=== PATIENT | female | born 1950 | race Caucasian/White ===

== ENCOUNTER 2016-03-20 07:05 | Day surgery (SDC) | payer BC ==
[2016-03-03 10:04] VITALS: BMI 21.7
[~2016-03-20 07:05] MED LIST: CEFAZOLIN 1 GM/D5W 50 ML IVPB ONE; CELECOXIB 200 MG CAPSULE PO ONE; GABAPENTIN 300 MG CAPSULE (FP) PO ONE; TRANEXAMIC ACID 1000 MG/10 ML VIAL IVPUSH ONE; oxyCODONE HCL 10 MG SUSTAINED ACTING TABLET PO ONE
[2016-03-20] MEDS ORDERED: oxyCODONE HCL 10 MG SUSTAINED ACTING TABLET ONE (07:26)
[2016-03-20] MEDS ORDERED: CELECOXIB 200 MG CAPSULE ONE (07:26)
[2016-03-20] MEDS ORDERED: GABAPENTIN 300 MG CAPSULE (FP) ONE (07:26)
[2016-03-20] MEDS ORDERED: MIDAZOLAM HCL 2 MG/2 ML SINGLE DOSE VIAL ONE (08:26)
[2016-03-20] MEDS ORDERED: DEXAMETHASONE SOD PHOSPHATE/PF 10 MG/ML SDV ONE (08:26)
[2016-03-20] MEDS ORDERED: BUPIVACAINE HCL/PF 0.5% (5MG/ML) 10 ML VIAL ONE ×2 (08:27→08:50)
[2016-03-20] MEDS ORDERED: ceFAZolin SODIUM 1 GM VIAL ONE ×2 (08:49→09:14)
[2016-03-20] MEDS ORDERED: ROPIVICAINE 0.2%/MORPH PF/KETOROLAC - 51ML DISP.SYRINGE IA ONE ×2 (08:49→10:46)
[2016-03-20] MEDS ORDERED: SUCCINYLCHOLINE CHLORIDE 200 MG/10 ML VIAL ONE (08:51)
[2016-03-20] MEDS ORDERED: PROPOFOL 20 ML ONE ×4 (09:14→12:33)
[2016-03-20] MEDS ORDERED: ePHEDrine SULFATE 50 MG/1 ML AMPULE ONE (09:31)
[2016-03-20] MEDS ORDERED: KETOROLAC TROMETHAMINE 30 MG/1 ML VIAL ONE (10:08)
[2016-03-20] MEDS ORDERED: DEXAMETHASONE SOD PHOSPHATE 4 MG/1 ML VIAL ONE (10:08)
[2016-03-20] MEDS ORDERED: ONDANSETRON 4 MG/2 ML VIAL ONE (10:08)
[2016-03-20] MEDS ORDERED: TRANEXAMIC ACID 1000 MG/10 ML VIAL ONE (11:03)
[2016-03-20] MEDS ORDERED: ONDANSETRON 4 MG/2 ML VIAL IVPB PRN (11:13)
[2016-03-20] MEDS ORDERED: MAG HYDROX/AL HYDROX/SIMETH 30 ML UNIT-DOSE CUP PO PRN (11:13)
[2016-03-20] MEDS ORDERED: LACTATED RINGERS SOLUTION 1,000 ML IV SCH ×2 (11:15)
[2016-03-20] MEDS ORDERED: ONDANSETRON 4 MG/2 ML VIAL IVPUSH PRN (11:15)
[2016-03-20] MEDS ORDERED: oxyCODONE HCL 5 MG TABLET PO PRN ×2 (11:15)
[2016-03-20] MEDS ORDERED: PROMETHAZINE HCL 25 MG/1 ML VIAL IVPUSH PRN (11:15)
[2016-03-20] MEDS: ACETAMINOPHEN 1000 MG/100 ML VIAL (NON FORMULARY) IVPB ONE ×2 (11:26→12:48)
--- NOTE | 2016-03-20 11:26 | OP ---
Operative Note - Note: Operative Date: 03/20/16 Pre-Operative Diagnosis: Right knee patellofemoral joint arthritis Operation: Replacement of trochlear portion of femoral condyles with prosthesis , replacement of patella with prosthesis Implants: trochlea and patella implants Surgeon: Ajit Qureshi Director Patient Accounting: Portia Alvarez Anesthesiologist/METALLURGICAL ANALYST: Rachell Lance Anesthesia: General, Spinal Estimated Blood Loss (mls): 0
[2016-03-20] MEDS ORDERED: CALCIUM 500MG/VIT-D 200 UNITS COMBO TABLET (FP) PO SCH (11:30)
--- NOTE | 2016-03-20 14:42 | OP ---
DATE OF OPERATION: 03/20/2016 PREOPERATIVE DIAGNOSIS: Right knee patellofemoral arthritis. POSTOPERATIVE DIAGNOSIS: Right knee patellofemoral arthritis. OPERATION PERFORMED: 1. Replacement of right knee trochlear portion of femoral condyles. 2. Replacement of right patella with prosthesis. COMPONENTS USED: [place] [employer] Restoris size 2 right femoral trochlea and 29-mm asymmetric patella. DRAINS PLACED: None. ESTIMATED BLOOD LOSS: Less than 50 mL. TOTAL TOURNIQUET TIME: 90 minutes. FINDINGS: Complete loss of cartilage over the entire patella with exposed denuded bone and lateral trochlear portion of the femoral condyles complete loss of cartilage encompassing over 50% of the trochlea. INDICATIONS FOR THE PROCEDURE: This patient failed greater than 1 year of nonoperative treatment for right knee patellofemoral arthritis including nonsteroid, antiinflammatories, physical therapy, activity modifications, intraarticular injections, and other wgyf-bra-vkrktro medications, and was indicated for right knee patellofemoral replacement. Preoperatively in the waiting area as well as in the office I had a long discussion with the patient regarding the plan, the expected outcome, and the risks, benefits, and alternatives of surgery. The risks include, but are not limited to infection, which may require future surgery and removal of implants, bleeding which may require transfusion, damage to nerves, arteries, veins, tendons, muscles, and other adjacent structures leading to possible numbness, weakness, decreased function, and the possible need for surgical repair. Also discussed with her the possibility of implant loosening, stiffness, patellofemoral maltracking, and need for revision surgery for a variety of reasons. We also discussed blood clots and other possible medical complications. In addition, we discussed the possibility of needing future surgery for conversion of this to a total knee replacement. This was discussed at length and consent was obtained. PROCEDURE IN DETAIL: The patient was taken to the operating room and placed on the operating table in supine position following induction of spinal anesthesia. A well-padded tourniquet was placed on the right thigh and the right lower extremity was prepped and draped in a sterile fashion and a time-out was performed to confirm the correct side, verify that the site was marked, and confirmed the correct patient and procedure to be performed, as well as that the patient received the appropriate preoperative antibiotics, tranexamic acid, and a had a compression device on the nonoperative leg and was appropriately in the [employer] computer and robot. The tourniquet was elevated and the midline incision was performed followed by a medial parapatellar arthrotomy. Next we placed 2 pins into the femur 4 fingerbreadths proximal to the incision through 5-mm incisions that were bluntly dissected down to bone. The tracker was then attached. We placed a checkpoint on the femur. We then registered the patient in the computer through obtaining the hip center and obtaining various checkpoints. We also did cartilage mapping to assure that our implant would be flush with the cartilage. We then planned for and used a bur on our trochlear portion of our femoral condyles and did this in accordance with our preoperative and intraoperative plans while protecting the surrounding soft tissues. We then placed a trial implant in the trochlear portion of the femoral condyles. We then addressed the patella, which measured 20-mm. We then used the guide and cut down to 13- mm and then reconstructed this with a 29-mm patella. We then performed a lateral double-cut. We removed any osteophytes around the trochlear portion of the femoral condyles and with the trials in place we had good stability, range of motion, and the patella tracked centrally. We were able to flex to 140 degrees and fully extend. We then removed the trial components. We copiously irrigated the knee and we performed sequential supplementation first with the trochlear portion of the femoral condyle and then the patella. All excess cement was removed and we waited for the cement to harden. Once all of the cement was harden with the trials in place, the patella tracked centrally and there was flexion to 140 degrees with the patellar and femoral components in place. The knee was copiously irrigated once again and we injected a local anesthetic cocktail. We closed the arthrotomy with number 1 Vicryl and the skin with 2-0 Vicryl and ivelisse. Prior to cementing, we had removed all our trackers and checkpoints and pins. A dry sterile compressive dressing was placed and the patient was returned to the recovery room in stable condition. WOUND CLASSIFICATION: Clean. COMPLICATIONS: None. SPECIMENS: bone. Suellen [id number] MTDD
[2016-03-20] MEDS: ACETAMINOPHEN 325 MG TABLET (FP) PO SCH (17:56)
[2016-03-20] MEDS: CEFAZOLIN 1 GM/D5W 50 ML IVPB SCH (17:56)
[2016-03-20] MEDS: ASPIRIN 325 MG TABLET PO SCH (21:45)
[2016-03-20] MEDS: CELECOXIB 200 MG CAPSULE PO SCH (21:46)
[2016-03-20] MEDS: GABAPENTIN 300 MG CAPSULE (FP) PO SCH (21:46)
[2016-03-20] MEDS: oxyCODONE HCL 10 MG SUSTAINED ACTING TABLET PO SCH (21:47)
[2016-03-20] MEDS: SENNOSIDES/DOCUSATE COMBO (SENNA PLUS) TABLET (UD) PO SCH (21:48)
[2016-03-20] MEDS ORDERED: GABAPENTIN 300 MG CAPSULE (FP) PO SCH (22:00)
[2016-03-21] MEDS: ACETAMINOPHEN 325 MG TABLET (FP) PO SCH ×2 (00:19→05:34)
[2016-03-21] MEDS: CEFAZOLIN 1 GM/D5W 50 ML IVPB SCH (01:02)
[2016-03-21 09:52] VITALS: BP 100/50; PULSE 87; TEMP 97.3
[2016-03-21] MEDS: SENNOSIDES/DOCUSATE COMBO (SENNA PLUS) TABLET (UD) PO SCH (09:58)
[2016-03-21] MEDS: ASPIRIN 325 MG TABLET PO SCH (09:58)
[2016-03-21] MEDS: GABAPENTIN 300 MG CAPSULE (FP) PO SCH (09:59)
[2016-03-21] MEDS ORDERED: RALOXIFENE HCL PO SCH (10:00)
[2016-03-21] MEDS: CELECOXIB 200 MG CAPSULE PO SCH (10:00)
[2016-03-21] MEDS ORDERED: PANTOPRAZOLE 40 MG TABLET (FP) PO SCH (10:00)
[2016-03-21] MEDS ORDERED: MULTIVITAMINS (DAILY MVI) TABLET (FP) PO SCH (10:00)
[2016-03-21] MEDS ORDERED: CHOLECALCIFEROL (VITAMIN D3) 1,000 UNIT TABLET (FP) PO SCH (10:00)
--- NOTE | 2016-03-21 10:15 | PN ---
Progress Note (short form) - Note Progress Note: 66F POD1 s/p R knee makoplasty under spinal anesthetic with adductor canal and selective tibial blocks doing well. Pt states that pain is well controlled, AVSS , reports no anesthetic complications. Sensory and motor function is intact in both lower extremities.
[2016-03-21] MEDS: oxyCODONE HCL 10 MG SUSTAINED ACTING TABLET PO SCH (10:23)
--- NOTE | 2016-03-21 10:27 | HOSP ---
Subjective - Review of Symptoms Subjective: patient concerned in regards to nausea after discharge home. She reports feeling well, minimal pain to the right knee, denies any paresthesia, chest pain or shortness of breath. Physical Examination Vital Signs: Vital Signs Temperature 97.3 F L 03/21/16 09:51 Pulse Rate 87 03/21/16 09:51 Respiratory Rate 18 03/21/16 09:51 Blood Pressure 100/50 03/21/16 09:51 O2 Sat by Pulse Oximetry (%) 100 03/21/16 09:00 Constitutional: Yes: Well Nourished, No Distress, Calm Hospitalist Encounter Outcome: discharge home with prescription for zofran. Primary Physician Notified: Ajit Qureshi Time PMD Notified: 10:15
--- NOTE | 2016-03-24 11:42 | PATH ---
Surgical Pathology Report Patient Name: EMERY LEWIS [facility]. Rec. #: [id number] /Age/Gender: 1950 (Age: 66) / F Account: [id number] Location: [facility] AMBULATORY Taken: 03/20/2016 Received: 03/20/2016 Reported: 03/24/2016 Physicians: Ajit Qureshi M.D. Specimen(s) Received RIGHT PATELLA BONE AND TISSUE Clinical History Chondromalacia patella, arthritis right knee Final Diagnosis BONE AND SOFT TISSUE, RIGHT KNEE, PARTIAL REPLACEMENT: DEGENERATIVE JOINT DISEASE. Electronically Signed Xu Gordon M.D. Gross Description Received in formalin, labeled "right patella bone and tissue," is a 3.7 x 3.0 x 0.6 cm go, irregular portion of bone with minimal attached soft tissue. The articular surface displays a 1 cm in greatest dimension area of eburnation present. The remaining articular surface is go-yellow and diffusely granular. The underlying trabecular bone is yellow and hard. Plug Saw Operator sections are submitted in one cassette, following decalcification. 03/21/201603/21/2016
== END 2016-03-21 11:22 | disposition home health service (06) ==
LOC: FASU 07:05 → FM/S 12:29 → FASU 03-21 11:22
PROVIDERS: ATTEND Orthopaedic Surgery
PROC: 8E0YXBZ Computer Assisted Procedure of Lower Extremity (ICD-10-PCS; 2016-03-20)
PROC: 0QRD0JZ Replacement of Right Patella with Synthetic Substitute, Open Approach (ICD-10-PCS; 2016-03-20)
PROC: 8E0YXBZ Computer Assisted Procedure of Lower Extremity (ICD-10-PCS; 2016-03-20)
PROC: 8E0Y0CZ Robotic Assisted Procedure of Lower Extremity, Open Approach (ICD-10-PCS; 2016-03-20)
PROC: 0SRT0J9 Replacement of Right Knee Joint, Femoral Surface with Synthetic Substitute, Cemented, Open Approach (ICD-10-PCS; principal; 2016-03-20 09:36)
DX: M17.11 Unilateral primary osteoarthritis, right knee (principal); M22.41 Chondromalacia patellae, right knee
CPT/HCPCS: 20985; 27438; 27442; S2900; 73560-TC-RT; 88304-TC; 88311-TC; 94010; 94760; 97116-GP; 97162-PG

== ENCOUNTER 2017-03-20 10:59 | Day surgery (SDC) | payer BC ==
--- NOTE | 2017-03-17 11:01 | HP ---
Admitting History and Physical - Primary Care Physician PCP: Hillary Gonzalez - Admission Chief Complaint: right radial sclerosing lesion History of Present Illness: 67 yo female noted to have right 6 o'clock mass on mammo and US. Patient underwent a right US guided core bx 12/05/2016 which was c/w radial sclerosing lesion. Patient is now presenting for right breast WE with NL. History Source: Patient Limitations to Obtaining History: No Limitations - Past Surgical History Additional Past Surgical History: right knee surgery 2017 - Smoking History Smoking history: Never smoked Have you smoked in the past 12 months: No - Alcohol/Substance Use Hx Alcohol Use: Yes (social) Home Medications - Allergies Allergies/Adverse Reactions: Allergies Allergy/AdvReac Type Severity Reaction Status Date / Time No Known Allergies Allergy Verified 03/03/16 09:44 - Home Medications Home Medications: Ambulatory Orders Calcium Carbonate/Vitamin D3 [Calcium 500-Vit D3 200 Caplet] 1 tab PO PRN Cholecalciferol (Vitamin D3) [Vitamin D3] 5,000 unit PO DAILY 03/03/16 Raloxifene HCl [Evista (Nf) -] 1 tab PO DAILY 03/03/16 Ondansetron [Zofran Odt -] 4 mg SL TID PRN #21 od.tablet 03/21/16 Family Disease History - Family Disease History Family Disease History: CA: Mother (breast at 61) Other Family History: maternal uncle x 2 (colon cancer 80s) Review of Systems - Review of Systems Constitutional: reports: No Symptoms Cardiovascular: reports: No Symptoms Respiratory: reports: No Symptoms Physical Examination Cardiovascular: Yes: WNL Respiratory: Yes: WNL Breast(s): Yes: Other (Symmetrical without skin changes or nipple discharge. Breasts are diffusely nodular and dense without suspicious masses or adenopathy) Problem List - Problems (1) Benign neoplasm of right breast Code(s): D24.1 - BENIGN NEOPLASM OF RIGHT BREAST Assessment/Plan Plan: right breast wide excision with NL
[2017-03-19 09:10] VITALS: BMI 22.2
[2017-03-20] MEDS ORDERED: MIDAZOLAM HCL 2 MG/2 ML SINGLE DOSE VIAL ONE (14:19)
[2017-03-20] MEDS ORDERED: PROPOFOL 20 ML ONE (14:19)
[2017-03-20] MEDS ORDERED: DEXAMETHASONE SOD PHOSPHATE 4 MG/1 ML VIAL ONE (14:19)
[2017-03-20] MEDS ORDERED: LIDOCAINE HCL 2% 100 MG/5 ML DISP.SYRIN ONE (14:19)
[2017-03-20] MEDS ORDERED: LIDOCAINE HCL 1%, 10 MG/ML (20ML VIAL) ONE (14:42)
[2017-03-20] MEDS ORDERED: ONDANSETRON 4 MG/2 ML VIAL IVPUSH PRN (14:46)
[2017-03-20] MEDS ORDERED: DEXTROSE 5%-0.45% SALINE 1,000 ML IV SCH (15:00)
[2017-03-20] MEDS ORDERED: KETOROLAC TROMETHAMINE 30 MG/1 ML VIAL IVPUSH ONE (15:00)
[2017-03-20] MEDS ORDERED: BUPIVACAINE HCL/PF 0.25% (2.5MG/ML) 10 ML VIAL ONE (15:08)
[2017-03-20] MEDS ORDERED: ELECTROLYTE-148 SOLN 1,000 ML IV SCH (15:15)
[2017-03-20] MEDS ORDERED: ePHEDrine SULFATE 50 MG/1 ML AMPULE ONE (15:28)
[2017-03-20] MEDS ORDERED: ACETAMINOPHEN 325 MG TABLET (FP) PO ONE (15:30)
[2017-03-20] MEDS ORDERED: KETOROLAC TROMETHAMINE 30 MG/1 ML VIAL ONE (16:15)
[2017-03-20 16:48] VITALS: TEMP 97.9
[2017-03-20 17:57] VITALS: BP 127/67; PULSE 85
--- NOTE | 2017-03-23 11:28 | OP ---
DATE OF OPERATION: 03/20/2017 PREOPERATIVE DIAGNOSIS: Right breast radial scar. POSTOPERATIVE DIAGNOSIS: Right breast radial scar. PROCEDURE: Right mammographic localized breast wide excision. ANESTHESIA: IV sedation with local. ATTENDING SURGEON: Damion Gonzalez MD WELD FITTER: NOE Glynn ESTIMATED BLOOD LOSS: Minimal. COMPLICATIONS: None. DESCRIPTION OF PROCEDURE: The patient was made aware of the risks and benefits of the surgery and was consented. The patient was brought to the Radiology suite where a needle and wire were placed next to the index lesion. She was then placed in the supine position on the operating room table, and after IV sedation was administered, the operative site a prepped and draped in the usual sterile fashion. The local was locally infiltrated with a 1:1 ratio of 1% lidocaine with 0.25% bupivacaine for local anesthesia. The curvilinear periareolar incision was made the 6 o'clock position. Using electrocautery, thick skin flaps were made and then the needle was withdrawn to the puncture site and the wire . Tissues around the wire were then sharply excised and submitted with a short suture superior, long suture lateral. Specimen radiograph confirmed the presence of the index lesion. The wound was copiously irrigated with normal saline. Hemostasis was maintained by electrocautery. The deep tissues were closed with 2-0 Vicryl followed by deep subcuticular 3-0 Vicryl followed by a running subcuticular 4-0 Monocryl. Steri-Strips, a sterile bandage as well as compression bra were then applied, and the patient having tolerated the procedure well, was sent to the recovery room in excellent condition. DAMION GONZALEZ M.D. [id number]
--- NOTE | 2017-03-25 15:36 | PATH ---
Surgical Pathology Report Patient Name: EMERY LEWIS [facility]. Rec. #: [id number] /Age/Gender: 1950 (Age: 67) / F Account: [id number] Location: [facility] SURGICAL Taken: 03/20/2017 Received: 03/20/2017 Reported: 03/25/2017 Physicians: Hillary Gonzalez M.D. Specimen(s) Received RIGHT BREAST WIDE EXCISION Clinical History Radial scar Final Diagnosis BREAST, RIGHT, WIDE EXCISION: ATYPICAL DUCTAL HYPERPLASIA INVOLVING RADIAL SCAR IN A BACKGROUND OF FIBROCYSTIC CHANGES INCLUDING STROMAL FIBROSIS, MICROCYST FORMATION, SCLEROSING ADENOSIS, USUAL DUCTAL HYPERPLASIA, AND MICROCALCIFICATIONS. Electronically Signed Pinky Spangler M.D. Gross Description Received fresh on an [employer], labeled "right breast wide excision," is a 3.8 x 3.5 x 1.8 cm. go-yellow, irregular, portion of fibroadipose tissue with a needle localization wire present. There is a short suture marking the superior aspect and a long suture marking the lateral aspect, per the surgeon. There is no skin or nipple present. The specimen is inked as follows: Superior red; inferior green; anterior and lateral blue; medial yellow; deep black. The specimen is serially sectioned from anterior to deep. Sectioning reveals abundant, multifocal dense white fibrous tissue. No definitive mass is identified. The specimen is entirely and sequentially submitted in 8 cassettes with the anterior margin cassette 1 and the deep margin in cassette 8. Total formalin fixation time: Approximately 7 hours DL03/20/201703/20/2017
== END 2017-03-20 17:15 | disposition home or self-care (01) ==
LOC: JASU-SURG 10:59
PROVIDERS: ATTEND Surgery Surgical Oncology
PROC: 0HBT0ZX Excision of Right Breast, Open Approach, Diagnostic (ICD-10-PCS; principal; 2017-03-20 14:00)
DX: D24.1 Benign neoplasm of right breast (principal)
CPT/HCPCS: 19281; 88307-TC; 94760